=== PATIENT | male | born 2000 | race Caucasian/White ===

== ENCOUNTER 2019-04-15 03:28 | Inpatient (IN) | payer OTHER ==
[~2019-04-15] VITALS: Ht 185.4 cm; Wt 77.5 kg
[2019-04-15] MEDS ORDERED: METOCLOPRAMIDE 5 MG/ML, 2ML ONE (03:44)
[2019-04-15] MEDS ORDERED: ACETAMINOPHEN 325 MG TABLET ONE (03:45)
[2019-04-15] MEDS ORDERED: KETOROLAC 30 MG/1 ML ONE (03:45)
--- NOTE | 2019-04-15 03:58 | NUR ---
patient brought into room by ems. received report that girlfriend witnessed patient havin a seizure in bed. Patient is alert, oriented, has a flat affect. Patient reports not being able to remember going to bed, remembers dinner vaguely but does not remember his drive home. Provider to bedside, assessment complete. Girlfriend arrived at this time, confirms has pet that has active seizures and boyfriend had similar symptoms. Patient resting comfortably now. Adminstered medications per MD order (see electronic medications adminstration record (eMAR)) Awaiting computed tomography scan and phlebotomy labs.
[2019-04-15] MEDS ORDERED: KETOROLAC 30 MG/1 ML IVPush ONE (04:00)
[2019-04-15] MEDS ORDERED: METOCLOPRAMIDE 5 MG/ML, 2ML IVPush ONE (04:00)
[2019-04-15] MEDS ORDERED: SODIUM CHLORIDE 0.9% 1,000ML IVBOLUS ONE (04:00)
[2019-04-15] MEDS ORDERED: SODIUM CHLORIDE FLUSH 10ML SYR IVF ONE (04:00)
[2019-04-15] MEDS ORDERED: ACETAMINOPHEN 325 MG TABLET PO ONE (04:00)
[2019-04-15 04:05] LABS: RAPID INFLUENZA A Negative (Negative); RAPID INFLUENZA B POSITIVE (Negative)
[2019-04-15] MEDS ORDERED: PLEASE ENTER HEIGHT AND WEIGHT MC SCH (04:30)
[2019-04-15] MEDS ORDERED: PLEASE ENTER ALLERGIES MC SCH (04:30)
--- NOTE | 2019-04-15 04:41 | NUR ---
Patient returned from computed tomography imaging. Patient set up for lumbar puncture(LP.) LP completed per protocol. Cerebrospinal fluid hand carried to laboratory. Patient instructed on laying flat. Fluid bolus already running. Tree Feller Operator at bedside, drawing peripheral blood cultures and remain blood labs. Awaiting results on computed tomography imaging, results of lp and blood labs.
[2019-04-15 04:57] LABS: GLUCOSE, CSF 61 mg/dL (40-80); TOTAL PROTEIN,CSF 24 mg/dL (15-45)
[2019-04-15 05:05] LABS: BASOPHILS # (AUTO) 0.01 x10^3/uL (0-0.3); BASOPHILS % (AUTO) 0 % (0-1); EOSINOPHILS # (AUTO) 0.06 x10^3/uL (0-0.8); EOSINOPHILS % (AUTO) 1 % (1-7); LYMPHOCYTES # (AUTO) 0.29 x10^3/uL (1-6.1); LYMPHOCYTES % (AUTO) 6 % (22-44); MD NO; MEAN CORPUSCULAR HEMOGLOBIN 30.5 pg (27.5-34.5); MEAN CORPUSCULAR VOLUME 89.7 fL (81-97); MEAN PLATELET VOLUME 9.6 fL (7.4-10.4); MONOCYTES # (AUTO) 0.82 x10^3/uL (0-1.4); MONOCYTES % (AUTO) 16 % (2-9); NEUTROPHILS # (AUTO) 3.96 x10^3/uL (1.8-8.0); NEUTROPHILS % (AUTO) 77 % (42-75); PLATELET COUNT 172 x10^3/uL (130-400); RED BLOOD COUNT 4.65 x10^6/uL (4.38-5.82)
[2019-04-15 05:14] LABS: ALANINE AMINOTRANSFERASE 21 U/L (12-78); ALBUMIN 3.9 g/dL (3.4-5.0); ANION GAP 6 mmol/L (5-15); CALCIUM 8.4 mg/dL (8.5-10.1); CHLORIDE 108 mmol/L (98-107); CREATININE 1.06 mg/dL (0.7-1.3)
[2019-04-15 05:16] LABS: ALKALINE PHOSPHATASE 95 U/L (45-117); BILIRUBIN,TOTAL 0.4 mg/dL (0.2-1.0); TOTAL PROTEIN 7.2 g/dL (6.4-8.2)
[2019-04-15] MEDS ORDERED: DEXAMETHASONE 4 MG/ML, 5ML ONE (05:36)
[2019-04-15] MEDS ORDERED: OSELTAMIVIR 75 MG CAPSULE ONE (05:52)
[2019-04-15] MEDS ORDERED: CEFTRIAXONE PMX 2GM/50ML 50 ML ONE ×2 (05:53→13:28)
[2019-04-15] MEDS ORDERED: CEFTRIAXONE PMX 2GM/50ML 50 ML IV SCH (06:00)
[2019-04-15] MEDS ORDERED: DEXAMETHASONE 4 MG/ML, 1ML IVPush ONE (06:00)
[2019-04-15] MEDS ORDERED: ACYCLOVIR IV SCH (06:00)
[2019-04-15] MEDS ORDERED: OSELTAMIVIR 75 MG CAPSULE PO ONE (06:00)
[2019-04-15] MEDS ORDERED: SODIUM CHLORIDE 0.9% IV SCH (06:00)
[2019-04-15] MEDS ORDERED: VANCOMYCIN PER PHARMACY MC PRN ×2 (06:00→09:00)
--- NOTE | 2019-04-15 06:18 | NUR ---
Patient imaging resulted. Provider to bedside, informed of need for hospital stay and MRI. RN administered steroidal antiinflammatories, antiviral and antibiotic medications. Family verbalized understanding, concerns addressed by provider. patient still attached to monitor, vital signs stable (see vital sign flowsheet) Patient now out of the room to MRI. Awaiting results/medical room.
[2019-04-15] MEDS ORDERED: VANCOMYCIN 2,000 MG in SODIUM CHLORIDE 0.9% 500 ML IV ONE (06:30)
--- NOTE | 2019-04-15 06:49 | NUR ---
Received report from ASPEN Amin. All questions answered. Assuming care of pt at this time. Pt ambulates with steady gait and balance from room to bathroom with UA cup provided and girl friend walking bedside pt. NADN. No obvious defecits observed. Ordering medications per EMAR from pharmacy with yellow slip.
--- NOTE | 2019-04-15 06:50 | NUR ---
Gave report to diurnal RN. Covered patients medical history, interventions performed in ER (lp, ct, mri, fluid bolus and medicatons.) Reviewed plan of care. All questions answered.
[2019-04-15] MEDS ORDERED: GANCICLOVIR 400 MG in SODIUM CHLORIDE 0.9% 100 ML IVPB ONE (08:00)
--- NOTE | 2019-04-15 08:21 | NUR ---
LATE NOTE ENTRY DUE TO PT CARE FOR 0743: Called admitting doctor Dr. Casanova to discuss pharmacy request for substitution for acyclovir to gancyclovir. Dr. Casanova stated she would call pharmacy.
--- NOTE | 2019-04-15 08:29 | NUR ---
Lab called with request if additonal LP was to be perfromed. Spoke verbally in person with Dr. Casanova who stated, "no, please tell them to use the sample they already have and re-check it." Message discussed with mineral ore processing labourer who stated verbal understanding. Dr. Casanova at bedside.
[2019-04-15 08:36] LABS: MICROSCOPIC NOT IND
[2019-04-15 08:40] LABS: CULTURE INDICATED? NO
--- NOTE | 2019-04-15 08:48 | NUR ---
IV GANCYCLOVIR STARTED. FAMILY AT BEDSIDE. PT RESTING WITH NO COMPLAINTS.
[2019-04-15] MEDS: SODIUM CHLORIDE 0.9% 1,000 ML IV SCH ×2 (08:52→22:39)
[2019-04-15] MEDS ORDERED: hydrALAzine 20 MG/ML, 1ML IVPush PRN (09:00)
[2019-04-15] MEDS ORDERED: ONDANSETRON 2MG/ML, 2ML IVPush PRN (09:00)
[2019-04-15] MEDS ORDERED: LORazepam 2 MG/ML, 1ML IVPush PRN (09:00)
--- NOTE | 2019-04-15 11:00 | NUR ---
Pt provided hospital bed. Pt appreciative. PIV fluids infusing per EMAR. Yellow slip sent to pharmacy for medication request. VS updated. NADN. No needs expressed.
--- NOTE | 2019-04-15 12:26 | NUR ---
BREAK RN: REPORT TO FAISAL LOUISE, PLAN OF CARE DISCUSSED.
--- NOTE | 2019-04-15 13:32 | NUR ---
Pt transfered to floor from ED. LUDMILA. Pt and family left with all personal belongings.
[2019-04-15] MEDS ORDERED: PHARMACOKINETIC MONITORING MC PRN (14:30)
[2019-04-15 14:52] VITALS: BP 128/81
[2019-04-15] MEDS: ACYCLOVIR 800 MG in SODIUM CHLORIDE 0.9% 250 ML IV SCH ×2 (15:25→22:39)
[2019-04-15] MEDS: ACETAMINOPHEN 325 MG TABLET PO PRN (15:25)
[2019-04-15] MEDS: CEFTRIAXONE PMX 2GM/50ML 50 ML IV SCH (18:04)
[2019-04-15 18:12] VITALS: BP 128/81
[2019-04-15 18:46] VITALS: BP 116/49
[2019-04-15] MEDS: VANCOMYCIN 1,600 MG in SODIUM CHLORIDE 0.9% 250 ML IV SCH (20:26)
[2019-04-16 01:47] VITALS: BP 112/45
[2019-04-16] MEDS: VANCOMYCIN 1,600 MG in SODIUM CHLORIDE 0.9% 250 ML IV SCH ×3 (03:57→20:00)
[2019-04-16] MEDS: ACETAMINOPHEN 325 MG TABLET PO PRN ×4 (05:28→21:38)
[2019-04-16 05:39] LABS: ALANINE AMINOTRANSFERASE 21 U/L (12-78); ALBUMIN 3.3 g/dL (3.4-5.0); ANION GAP 3 mmol/L (5-15); CALCIUM 8.2 mg/dL (8.5-10.1); CHLORIDE 111 mmol/L (98-107)
[2019-04-16 05:42] LABS: ALKALINE PHOSPHATASE 79 U/L (45-117); BILIRUBIN,TOTAL 0.5 mg/dL (0.2-1.0); CREATININE 0.94 mg/dL (0.7-1.3); TOTAL PROTEIN 6.7 g/dL (6.4-8.2)
[2019-04-16 05:43] LABS: MEAN CORPUSCULAR HEMOGLOBIN 30.4 pg (27.5-34.5); MEAN CORPUSCULAR HGB CONC 33.2 g/dL (33.2-36.2); MEAN CORPUSCULAR VOLUME 91.6 fL (81-97); MEAN PLATELET VOLUME 9.9 fL (7.4-10.4); PLATELET COUNT 165 x10^3/uL (130-400); RED BLOOD COUNT 4.68 x10^6/uL (4.38-5.82); RED CELL DISTRIBUTION WIDTH 13.3 % (9.4-14.8)
[2019-04-16 06:01] VITALS: BP 130/61
[2019-04-16] MEDS: CEFTRIAXONE PMX 2GM/50ML 50 ML IV SCH ×2 (06:14→17:39)
[2019-04-16 06:19] LABS: MD YES
[2019-04-16 06:21] LABS: <RBC MORPHOLOGY> NORMAL; BAND#(MANUAL) 0.05 x10^3/uL; BANDS%(MANUAL) 1 % (0-7); LYMPH#(MANUAL) 0.68 x10^3/uL (1-3.4); LYMPHS% (MANUAL) 13 % (22-44); MONOS#(MANUAL) 0.78 x10^3/uL (0.3-2.7); MONOS% (MANUAL) 15 % (2-9); SEG#(MANUAL) 3.69 x10^3/uL (1.8-6.8); SEGS% (MANUAL) 71 % (42-75)
[2019-04-16 06:22] LABS: <PLATELET ESTIMATE> ADEQUATE; <PLT MORPHOLOGY> NORMAL PLT MORPH
[2019-04-16] MEDS: ACYCLOVIR 800 MG in SODIUM CHLORIDE 0.9% 250 ML IV SCH ×3 (07:03→23:16)
[2019-04-16 13:25] VITALS: BP 120/65
[2019-04-16] MEDS: SODIUM CHLORIDE 0.9% 1,000 ML IV SCH ×2 (14:15→17:40)
[2019-04-16 18:44] VITALS: BP 133/79
[2019-04-17 01:10] VITALS: BP 119/64
[2019-04-17] MEDS: VANCOMYCIN 1,600 MG in SODIUM CHLORIDE 0.9% 250 ML IV SCH (04:08)
[2019-04-17 04:13] LABS: BASOPHILS # (AUTO) 0.01 x10^3/uL (0-0.1); BASOPHILS % (AUTO) 0 % (0-1); EOSINOPHILS # (AUTO) 0.09 x10^3/uL (0-0.4); EOSINOPHILS % (AUTO) 2 % (1-7); LYMPHOCYTES # (AUTO) 1.54 x10^3/uL (1-3.4); LYMPHOCYTES % (AUTO) 31 % (22-44); MD NO; MEAN CORPUSCULAR HEMOGLOBIN 30.6 pg (27.5-34.5); MEAN CORPUSCULAR VOLUME 92.5 fL (81-97); MEAN PLATELET VOLUME 10.2 fL (7.4-10.4); MONOCYTES # (AUTO) 0.68 x10^3/uL (0.2-0.8); MONOCYTES % (AUTO) 14 % (2-9); NEUTROPHILS # (AUTO) 2.67 x10^3/uL (1.8-6.8); NEUTROPHILS % (AUTO) 54 % (42-75); PLATELET COUNT 163 x10^3/uL (130-400); RED CELL DISTRIBUTION WIDTH 13.5 % (9.4-14.8)
[2019-04-17 04:24] LABS: ALBUMIN 3.3 g/dL (3.4-5.0); ANION GAP 6 mmol/L (5-15); CALCIUM 8.2 mg/dL (8.5-10.1); CHLORIDE 110 mmol/L (98-107); CREATININE 0.94 mg/dL (0.7-1.3)
[2019-04-17] MEDS: CEFTRIAXONE PMX 2GM/50ML 50 ML IV SCH (06:12)
[2019-04-17 07:00] VITALS: BP 144/76
[2019-04-17] MEDS: ACYCLOVIR 800 MG in SODIUM CHLORIDE 0.9% 250 ML IV SCH (08:08)
[2019-04-17] MEDS: ACETAMINOPHEN 325 MG TABLET PO PRN (08:08)
[2019-04-17] MEDS ORDERED: MAGNESIUM SULFATE PMX 2GM/50ML 50 ML IV ONE (08:30)
[2019-04-17] MEDS: SODIUM CHLORIDE 0.9% 1,000 ML IV SCH ×2 (10:29→22:55)
[2019-04-17 12:54] VITALS: BP 132/79
[2019-04-17] MEDS ORDERED: ACETAMINOPHEN 325 MG TABLET PO PRN (17:00)
[2019-04-17 18:53] VITALS: BP 144/74
[2019-04-17] MEDS: OSELTAMIVIR 75 MG CAPSULE PO SCH (20:15)
[2019-04-18 01:03] VITALS: BP 132/70
[2019-04-18] MEDS ORDERED: OSEL75CA14 PO ×3 (08:09→11:01)
[2019-04-18 08:10] VITALS: BP 128/73
[2019-04-18] MEDS ORDERED: ONDA4TAB7 PO (08:10)
[2019-04-18] MEDS: SODIUM CHLORIDE 0.9% 1,000 ML IV SCH (08:16)
[2019-04-18] MEDS: OSELTAMIVIR 75 MG CAPSULE PO SCH (09:33)
== END 2019-04-18 11:22 | disposition home or self-care (01) | DRG 100 ==
LOC: ED 06:09 → EDIP 06:26 → 3N 13:40
PROVIDERS: ADMIT Family Medicine; ATTEND Hospitalist
PROC: 009U3ZX Drainage of Spinal Canal, Percutaneous Approach, Diagnostic (ICD-10-PCS; principal; 2019-04-15)
DX: G40.89 Other seizures (principal); I67.83 Posterior reversible encephalopathy syndrome; F05 Delirium due to known physiological condition; R65.10 Systemic inflammatory response syndrome (SIRS) of non-infectious origin without acute organ dysfunction; J10.1 Influenza due to other identified influenza virus with other respiratory manifestations; D72.821 Monocytosis (symptomatic); D72.820 Lymphocytosis (symptomatic); Z80.42 Family history of malignant neoplasm of prostate; Z87.891 Personal history of nicotine dependence; Z87.820 Personal history of traumatic brain injury
CPT/HCPCS: 36415; 70450; 70551; 71045; 80048; 80053; 80202; 81003; 82040; 82945; 83605; 83735; 84100; 84145; 84157; 84443; 85025; 87040; 87070; 87205; 87252; 87389; 87400; 87529; 89051; 93005; 95819; G0378; J0133; J0696; J1100; J1885; J3370; J1570; J2765; J3475; J7030; J7040; J7050

== ENCOUNTER 2019-04-26 09:32 | Emergency (ER) | payer OTHER ==
[~2019-04-26] VITALS: Ht 185.4 cm; Wt 76.2 kg
[~2019-04-26 09:32] MED LIST: ONDA4TAB7 PO; OSEL75CA14 PO
[2019-04-26 09:51] VITALS: BP 136/67
== END 2019-04-26 11:37 | disposition home or self-care (01) ==
LOC: ED 11:31
DX: B00.9 Herpesviral infection, unspecified (principal)
CPT/HCPCS: 99283

== ENCOUNTER 2019-07-11 01:47 | Emergency (ER) | payer OTHER ==
[~2019-07-11] VITALS: Ht 182.9 cm; Wt 79.2 kg
[2019-07-11 02:38] VITALS: BP 124/76
--- NOTE | 2019-07-11 02:42 | NUR ---
Pt resting on kevin, at bedside. Pt A&O x4, VSS. Will cont to monitor.
[2019-07-11 02:52] LABS: BASOPHILS # (AUTO) 0.02 x10^3/uL (0-0.1); BASOPHILS % (AUTO) 0 % (0-1); EOSINOPHILS % (AUTO) 8 % (1-7); LYMPHOCYTES % (AUTO) 28 % (22-44); MD NO; MEAN CORPUSCULAR HEMOGLOBIN 31.3 pg (27.5-34.5); MEAN CORPUSCULAR HGB CONC 34.2 g/dL (33.2-36.2); MEAN CORPUSCULAR VOLUME 91.6 fL (81-97); MEAN PLATELET VOLUME 10.2 fL (7.4-10.4); MONOCYTES # (AUTO) 0.65 x10^3/uL (0.2-0.8); MONOCYTES % (AUTO) 9 % (2-9); NEUTROPHILS # (AUTO) 3.91 x10^3/uL (1.8-6.8); NEUTROPHILS % (AUTO) 55 % (42-75); PLATELET COUNT 203 x10^3/uL (130-400); RED BLOOD COUNT 4.62 x10^6/uL (4.38-5.82); RED CELL DISTRIBUTION WIDTH 13.1 % (9.4-14.8)
[2019-07-11 03:03] LABS: ALANINE AMINOTRANSFERASE 23 U/L (12-78); ALBUMIN 3.7 g/dL (3.4-5.0); ANION GAP 5 mmol/L (5-15); CALCIUM 8.9 mg/dL (8.5-10.1); CHLORIDE 108 mmol/L (98-107); CREATININE 1.16 mg/dL (0.7-1.3)
[2019-07-11 03:06] LABS: ALKALINE PHOSPHATASE 109 U/L (45-117); BILIRUBIN,TOTAL 0.4 mg/dL (0.2-1.0); TOTAL PROTEIN 7.3 g/dL (6.4-8.2)
== END 2019-07-11 04:11 | disposition home or self-care (01) ==
LOC: ED 03:20
DX: R41.82 Altered mental status, unspecified (principal); R10.9 Unspecified abdominal pain; R51 Headache
CPT/HCPCS: 36415; 80053; 85025; 93005; 99284